=== PATIENT | female | born 1975 | race Hispanic/Latino ===

== ENCOUNTER 2019-05-23 12:38 | Inpatient (IN) | payer OTHER ==
[~2019-05-23] VITALS: Ht 154.9 cm; Wt 56.2 kg
[2019-05-23] MEDS ORDERED: SODIUM CHLORIDE 0.9% 1000ML 1,000 ML IV STA (12:55)
[2019-05-23] MEDS ORDERED: ONDANSETRON HCL INJ 2MG/ML 2ML 2 MG/ML VIAL IV STA (12:55)
[2019-05-23] MEDS ORDERED: PIPER-TAZ 3.375 GM 50 ML IV STA (12:55)
[2019-05-23] MEDS ORDERED: DIATRIZOATE MEGL/DIATRIZOA SOD 30 ML BTL PO ONE (13:30)
[2019-05-23 13:31] LABS: BASOPHILS % 0.1 % (0.0-1.0); EOSINOPHILS % 0.1 % (0.0-6.0); HEMATOCRIT 26.5 % (34.2-44.1); LYMPHOCYTES # (AUTO) 0.6 (1.0-3.2); LYMPHOCYTES % 4.4 % (18.0-39.1); MEAN CORPUSCULAR HEMOGLOBIN 22.8 pg (28-32); MEAN CORPUSCULAR HGB CONC 30.2 g/dL (31-35); MEAN CORPUSCULAR VOLUME 75.5 fL (81-99); MONOCYTES # (AUTO) 0.7 (0.2-0.8); MONOCYTES % 4.9 % (4.4-11.3); NEUTROPHILS # (AUTO) 12.3 (2.1-6.9); NEUTROPHILS % 89.9 % (38.7-80.0); PLATELET COUNT 358 x10e3/uL (140-360); RED BLOOD COUNT 3.51 x10e6/uL (3.6-5.1); RED CELL DISTRIBUTION WIDTH 17.2 % (11.7-14.4)
[2019-05-23] MEDS ORDERED: MORPHINE SULFATE INJ 4 MG/ML INJ 1ML IV NR (13:45)
[2019-05-23 13:50] LABS: BILIRUBIN,URINE NEGATIVE (NEGATIVE); CLARITY,URINE SL CLOUDY (CLEAR); COLOR,URINE YELLOW (YELLOW); KETONES,URINE NEGATIVE (NEGATIVE); LEUKOCYTE ESTERASE ,URINE TRACE (NEGATIVE); NITRITE,URINE NEGATIVE (NEGATIVE); PROTEIN,URINE DIPSTICK 2+ (NEGATIVE); URINE UROBILINOGEN 0.2 mg/dL (0.2 - 1)
[2019-05-23 13:51] LABS: PREGNANCY TEST, URINE NEGATIVE (NEGATIVE)
[2019-05-23 13:52] LABS: ALANINE AMINOTRANSFERASE 10 IU/L (0-55); ALBUMIN 3.6 g/dL (3.5-5.0); ALBUMIN/GLOBULIN RATIO 0.9 (0.8-2.0); ALKALINE PHOSPHATASE 69 IU/L (40-150); ANION GAP 14.3 mmol/L (8-16); BLOOD UREA NITROGEN 8 mg/dL (7-26); BUN/CREATININE RATIO 11 (6-25); CALCIUM 8.8 mg/dL (8.4-10.2); CARBON DIOXIDE 21 mmol/L (22-29); CHLORIDE 104 mmol/L (98-107); EST GLOMERULAR FILTRATION RATE > 60 ML/MIN (60-); GLUCOSE 118 mg/dL (74-118); LIPASE 24 U/L (8-78); POTASSIUM 3.3 mmol/L (3.5-5.1); SODIUM 136 mmol/L (136-145)
[2019-05-23 13:59] LABS: BACTERIA,URINE MANY /HPF; EPITHELIAL CELLS,URINE MODERATE /LPF; WBC,URINE (MAN) 21-50 /HPF (0-5)
--- NOTE | 2019-05-23 15:01 | Diagnostic Imaging Report ---
CT of the abdomen and pelvis History: Right lower quadrant pain Comparison: None available. Technique: Multidetector CT scanning of the abdomen and pelvis was performed from the level of the lung bases to the inferior pubic ramus, with intravenous administration of non-ionic contrast and with oral contrast. DOSE REDUCTION: The examination was performed according to departmental dose-optimization program which includes automated exposure control, adjustment of the mA and/or kV according to patient size and/or use of iterative reconstruction technique. Discussion: The lung bases are clear. No focal hepatic lesions are identified. The gallbladder is present nondistended. There are no radiopaque gallstones. There is no intrahepatic or extrahepatic biliary dilatation. Spleen is within normal limits of size. The bilateral adrenal glands are unremarkable. The pancreas is normal in attenuation. There is no pancreatic ductal dilatation or peripancreatic inflammatory stranding. The kidneys are normal in size and enhance symmetrically. There is no hydroureteronephrosis bilaterally. No renal calculi are identified. The stomach, small, and large bowel are nondistended. There is no evidence of obstruction. No bowel wall thickening is appreciated. The appendix is well-seen and is normal in caliber measuring 6 mm in maximum diameter. There is no free intraperitoneal air. An IUD is in place. The uterus and bilateral adnexa are within normal limits. There is a trace amount pelvic free fluid which is likely physiologic. The urinary bladder contains a punctate focus of gas which may be secondary to recent instrumentation. There is no bladder wall thickening. No acute osseous abnormalities are identified. IMPRESSION: 1. The appendix is normal in caliber. 2. Trace amount of pelvic free fluid, likely physiologic in nature. 3. Punctate focus of gas within the bladder. Possibly related to recent instrumentation. There is no evidence of bladder wall to suggest cystitis. 4. IUD in place. Signed by: Sudeep Hassan MD on 05/23/2019 2:58 PM
[2019-05-23] MEDS ORDERED: SODIUM CHLORIDE 0.9% 1000ML 1,000 ML IV ONE (15:15)
[2019-05-23] MEDS ORDERED: ONDANSETRON HCL INJ 2MG/ML 2ML 2 MG/ML VIAL IV PRN (15:15)
[2019-05-23] MEDS ORDERED: IOPAMIDOL 370 MG/ML 200 ML INFUS..BTL INJ ONE (15:22)
[2019-05-23] MEDS ORDERED: SODIUM CHLORIDE 0.9% 50ML 50 ML ONE (15:22)
--- OUTSIDE RECORDS SUMMARY | 2019-05-23 16:17 | XMS REPORT ---
Author Author [facility] Address Unknown Phone Unavailable Care Team Providers Care Advanced Clinical Specialist Name Role Phone Bridger HIGHTOWER Unavailable Unavailable Problems This patient has no known problems. Allergies, Adverse Reactions, Alerts This patient has no known allergies or adverse reactions. Medications This patient has no known medications. Results Test Description Test Time Test Comments Text Results Atomic Results Result Comments CT ABDOMEN/PELVIS W 2019-05-23 14:45:00 [facility] [address] [address] Patient Name: RAMA ANGEL MR #: [id number] : 1975 Age/Sex: 43/F Req #: [id number] Adm Physician: Ordered by: TESSA MARSHALL NP Report #: [id number] Location: ER Room/Bed: Procedure: [id number] CT/CT ABDOMEN/PELVIS W Exam Date: 05/23/19 Exam Time: 1420 REPORT STATUS: Signed CT of the abdomen and pelvis History: Right lower quadrant pain Comparison: None available. Technique: Multidetector CT scanning of the abdomen and pelvis was performed from the level of the lung bases to the inferior pubic ramus, with intravenous administration of non-ionic contrast and with oral contrast. DOSE REDUCTION: The examination was performed according to departmental dose-optimization program which includes automated exposure control, adjustment of the mA and/or kV according to patient size and/or use of iterative reconstruction technique. Discussion: The lung bases are clear. No focal hepatic lesions are identified. The gallbladder is present nondistended. There are no radiopaque gallstones. There is no intrahepatic or extrahepatic biliary dilatation. Spleen is within normal limits of size. The bilateral adrenal glands are unremarkable. The pancreas is normal in attenuation. There is no pancreatic ductal dilatation or peripancreatic inflammatory stranding. The kidneys are normal in size and enhance symmetrically. There is no hydroureteronephrosis bilaterally. No renal calculi are identified. The stomach, small, and large bowel are nondistended. There is no evidence of obstruction. No bowel wall thickening is appreciated. The appendix is well-seen and is normal in caliber measuring 6 mm in maximum diameter. There is no free intraperitoneal air. An IUD is in place. The uterus and bilateral adnexa are within normal limits. There is a trace amount pelvic free fluid which is likely physiologic. The urinary bladder contains a punctate focus of gas which may be secondary to recent instrumentation. There is no bladder wall thickening. No acute osseous abnormalities are identified. IMPRESSION: 1. The appendix is normal in caliber. 2. Trace amount of pelvic free fluid, likely physiologic in nature. 3. Punctate focus of gas within the bladder. Possibly related to recent instrumentation. There is no evidence of bladder wall to suggest cystitis. 4. [address]UD [address]. Signed by: Sudeep Dubon MD on 05/23/2019 2:58 PM Dictated By: SUDEEP DUBON MD [id number] Transcribed By: DARRYL on 05/23/19 [id number] COPY TO: TESSA MARSHALL NP
[2019-05-23] MEDS: SODIUM CHLORIDE 0.9% 1000ML 1,000 ML IV SCH (16:37)
[2019-05-23] MEDS ORDERED: POTASSIUM CHLORIDE 20 MEQ TAB CR PO NR (16:45)
--- NOTE | 2019-05-23 17:44 | NUR ---
Recvd patient from ER, AAOx3, Ambulates, not in any distress, new order recvd from Dr Ramírez for pain medicine, family at bed side, keep monitoring
[2019-05-23 17:52] VITALS: BP 111/55
[2019-05-23] MEDS ORDERED: PIPER-TAZ 3.375 GM 50 ML IV SCH (18:00)
[2019-05-23 18:06] VITALS: BP 111/55
[2019-05-23 18:24] VITALS: BP 111/55
[2019-05-23] MEDS: MORPHINE SULFATE INJ 4 MG/ML INJ 1ML IV PRN (18:44)
--- NOTE | 2019-05-23 19:10 | NUR ---
Bedside shift report with morning nurse. Pt alert and orient to name, sitting in bed HOB 90 degrees. Stated pain is improving, 6/10 abdominal pain. Call light within reach. Bed locked.
--- NOTE | 2019-05-23 19:47 | NUR ---
Pt with [address] Ramírez, ordered Tylenol 650mg every 6 hrs prn.
[2019-05-23 20:13] VITALS: BP 101/62
[2019-05-23] MEDS: ACETAMINOPHEN 325 MG TAB PO PRN (20:21)
[2019-05-23] MEDS: PIPER-TAZ 3.375 GM 50 ML IV SCH (22:00)
[2019-05-24] VITALS (8 sets, daily range): BP systolic 92–124; BP diastolic 55–79
[2019-05-24] MEDS: SODIUM CHLORIDE 0.9% 1000ML 1,000 ML IV SCH (02:51)
[2019-05-24] MEDS: MORPHINE SULFATE INJ 4 MG/ML INJ 1ML IV PRN ×2 (02:52→14:01)
[2019-05-24] MEDS: PIPER-TAZ 3.375 GM 50 ML IV SCH ×3 (06:00→22:25)
[2019-05-24 06:21] LABS: BASOPHILS % 0.3 % (0.0-1.0); EOSINOPHILS # (AUTO) 0.1 (0.0-0.4); EOSINOPHILS % 1.1 % (0.0-6.0); LYMPHOCYTES # (AUTO) 0.8 (1.0-3.2); LYMPHOCYTES % 8.5 % (18.0-39.1); MEAN CORPUSCULAR HGB CONC 30.2 g/dL (31-35); MEAN CORPUSCULAR VOLUME 76.3 fL (81-99); MONOCYTES # (AUTO) 0.7 (0.2-0.8); MONOCYTES % 6.6 % (4.4-11.3); NEUTROPHILS # (AUTO) 8.2 (2.1-6.9); PLATELET COUNT 240 x10e3/uL (140-360); RED BLOOD COUNT 2.78 x10e6/uL (3.6-5.1); RED CELL DISTRIBUTION WIDTH 17.2 % (11.7-14.4)
[2019-05-24 06:41] LABS: HEMATOCRIT 21.2 % (34.2-44.1); HEMOGLOBIN 6.4 g/dL (12.0-16.0)
--- NOTE | 2019-05-24 06:44 | NUR ---
Lab called to inform abnormal Hgb 6.3, Hct 21.2. Called Dr. Ramírez ordered x1 unit PRBCs.
[2019-05-24 06:54] LABS: ANION GAP 9.7 mmol/L (8-16); BLOOD UREA NITROGEN 5 mg/dL (7-26); BUN/CREATININE RATIO 8 (6-25); CALCIUM 7.8 mg/dL (8.4-10.2); CARBON DIOXIDE 22 mmol/L (22-29); CHLORIDE 108 mmol/L (98-107); CREATININE, SERUM 0.63 mg/dL (0.57-1.11); EST GLOMERULAR FILTRATION RATE > 60 ML/MIN (60-); GLUCOSE 89 mg/dL (74-118); POTASSIUM 3.7 mmol/L (3.5-5.1); SODIUM 136 mmol/L (136-145)
[2019-05-24] MEDS: ACETAMINOPHEN 325 MG TAB PO PRN (07:20)
--- NOTE | 2019-05-24 07:20 | NUR ---
Consent signed for blood and blood products.
[2019-05-24] MEDS ORDERED: SODIUM CHLORIDE 0.9% 250ML 250 ML IV ONE (07:25)
[2019-05-24 07:39] LABS: TOTAL IRON BINDING CAPACITY 356 ug/dL (261-478); TRANSFERRIN 254 mg/dL (180-382)
[2019-05-24 07:45] LABS: % IRON SATURATION 1 % (15-50); IRON < 5 ug/dL (50-170)
[2019-05-24] MEDS ORDERED: iron PO (08:43)
--- NOTE | 2019-05-24 11:43 | Diagnostic Imaging Report ---
Pelvic ultrasound Clinical History: Pelvic pain Discussion: Sonographic evaluation of the pelvis is performed transabdominally and transvaginally. The uterus is 10.1 x 6.3 x 7.3 cm and demonstrates heterogeneous echotexture with a 3.8 x 3.4 x 3.5 cm isoechoic solid lesion in the lower uterine segment distorting the endometrial stripe likely represents a submucosal fibroid. The endometrial echocomplex is homogeneous and measures 3mm. An intrauterine device is noted within the uterine cavity. The ovaries have normal size and appearance. The right ovary measures 3.0 x 1.8 x 2.1 cm. The left ovary measures 2.8 x 1.5 x 2.5 cm. Small amount of free fluid is seen in the cul-de-sac. Impression: 1. Uterine fibroid measuring up to 3.8 cm is noted. 2. IUD noted in the endometrial cavity. 3. Trace free fluid in the posterior cul-de-sac. Signed by: Dr. David Ward MD on 05/24/2019 11:40 AM
[2019-05-24] MEDS: IRON SUCROSE 100 MG in SODIUM CHLORIDE 0.9% 100 ML 100 ML IV SCH (15:39)
--- NOTE | 2019-05-24 19:20 | NUR ---
Report given to oncoming nurse of patient's status. NO s/s of acute distress noted. Side rails upx2, call light within reach, daughter at bedside
--- NOTE | 2019-05-24 19:30 | NUR ---
Patient received sitting up in bed. AAO x 4. No complaints of pain. No signs of respiratory distress. Safety measures in place. Patient instructed to call for assistance when needed. Call light within reach.
[2019-05-24] MEDS ORDERED: SODIUM CHLORIDE 0.9% 250ML 250 ML ONE (22:21)
[2019-05-25] VITALS (8 sets, daily range): BP systolic 111–132; BP diastolic 61–83
--- NOTE | 2019-05-25 04:32 | Consultation ---
DATE OF CONSULTATION: 05/24/2019 REASON FOR CONSULTATION: The patient is a 43-year-old, para 3, who was admitted for suspected pyelonephritis after having right lower quadrant pain, right flank pain, and fever. She was noted to have a white count of 13.7, hemoglobin 8.0, hematocrit 26.5, and platelets 358 with 90 segs and 4 lymphocytes. She was admitted to the hospital, given IV antibiotics, and has improved. She is noted to have a fibroid uterus and is very anemic with her hemoglobin and hematocrit 6.4 and 21.2. After hydration at the hospital, the patient states her pain has improved. She feels a lot better after the IV antibiotics. I presume that the reason for consultation is fibroid uterus and severe iron deficiency anemia with only 1% saturation on her anemia workup and serum iron of less than 5. The patient reports that she has had heavy periods her entire life. She has never been tested for colopathy, but does report that she bruises easily and has done so her entire life. She has more recently had heavy periods and she has an GUIDE DELEGATE, Dr. Carola Carbone, who has treated her bleeding with Mirena IUD. She inserted the IUD in March and the patient states that her bleeding has improved since the IUD was inserted, but she has been anemic and been treated with p.o. iron as an outpatient and her plan with her flag decorator was for endometrial ablation if the Mirena IUD did not work. On exam, her abdomen exhibits mild right lower quadrant tenderness with no rebound noted, which the patient states has greatly improved from previous. IMAGING STUDIES: She had an ultrasound of the pelvis, which showed uterus 10.1 cm x 6.3 cm x 7.3 cm with a 3.8 x 3.4 x 3.5 cm lesion in the lower uterine segment distorting the endometrium consistent with a submucosal fibroid. The IUD was also noted on the ultrasound. Both ovaries were within normal limits with a right ovary measuring 3.0 x 2.1 and the left ovary measuring 2.8 x 2.5. There is a small amount of fluid in the cul-de-sac, which was thought to be physiologic. Impression on ultrasound; 3.8 cm fibroid uterus, IUD in place, and trace amount of free fluid. CT scan showed normal appendix, trace free fluid, likely physiologic. There is gas in the bladder. No evidence of cystitis and the IUD was in place. On her second day in the hospital, her white count was 9.8, hemoglobin 6.4, hematocrit 21.2, platelets 240, 83 segs, and 9 lymphocytes. Sodium 136, potassium 3.7, chloride 108, bicarb 22, glucose 89, creatinine 0.63, and BUN 5. Urinalysis showed 2+ protein and showed 21-50 white blood cells, but moderate epithelials and many bacteria. Urine test was negative. IMPRESSION: Sepsis, responding to IV antibiotics, thought originally to be due to pyelonephritis with possibly some sort of gastroenteritis or other condition, unlikely to be related to her pelvic organs as inflammation not seen there on CT scan. Her hypokalemia is being treated with p.o. KCl. Her microcytic anemia has been worked up to show iron deficiency of very severe basis and she has apparent fibroid uterus with abnormal uterine bleeding being treated by the Mirena IUD. PLAN: She has already received transfusion of 1 unit of blood plus some IV iron. Since she has an GUIDE DELEGATE in place, the patient states that she is intending to go back to Dr. Carbone for followup and I explained her options of the Mirena IUD working and stopping her bleeding, possible need for endometrial ablation, possible hysteroscopic myomectomy, and as a last resort, hysterectomy. The patient understands these options. I might also suggest that she get a workup for coagulopathy, perhaps just running her PT and PTT to see if they are normal because of her history of always being heavy bleeder and of easy bruising. Thank you very much for the interesting consult. MD DUY Cherry/MODL /[id number]
[2019-05-25] MEDS: PIPER-TAZ 3.375 GM 50 ML IV SCH ×3 (06:03→22:00)
--- NOTE | 2019-05-25 06:54 | NUR ---
RECEIVED BEDSIDE SHIFT REPORT FROM OFF GOING NURSE. PATIENT IS RESTING IN BED. NO ACUTE DISTRESS NOTED. CALL LIGHT WITHIN REACH. BED IN THE LOWEST POSITION.
[2019-05-25 07:06] LABS: BASOPHILS % 0.2 % (0.0-1.0); EOSINOPHILS # (AUTO) 0.1 (0.0-0.4); EOSINOPHILS % 1.2 % (0.0-6.0); HEMATOCRIT 26.7 % (34.2-44.1); HEMOGLOBIN 8.1 g/dL (12.0-16.0); LYMPHOCYTES # (AUTO) 0.9 (1.0-3.2); LYMPHOCYTES % 10.5 % (18.0-39.1); MEAN CORPUSCULAR HEMOGLOBIN 23.6 pg (28-32); MEAN CORPUSCULAR HGB CONC 30.3 g/dL (31-35); MEAN CORPUSCULAR VOLUME 77.8 fL (81-99); MONOCYTES # (AUTO) 0.5 (0.2-0.8); MONOCYTES % 5.9 % (4.4-11.3); NEUTROPHILS # (AUTO) 6.7 (2.1-6.9); NEUTROPHILS % 81.7 % (38.7-80.0); PLATELET COUNT 268 x10e3/uL (140-360); RED BLOOD COUNT 3.43 x10e6/uL (3.6-5.1); RED CELL DISTRIBUTION WIDTH 17.6 % (11.7-14.4)
--- NOTE | 2019-05-25 07:50 | NUR ---
Walking rounds done. BSSR given to oncoming nurse.
--- NOTE | 2019-05-25 15:16 | NUR ---
PATIENT OFF THE UNIT FOR CT SCAN.
--- NOTE | 2019-05-25 15:38 | NUR ---
PATIENT BACK TO UNIT FROM CT.
--- NOTE | 2019-05-25 16:08 | Diagnostic Imaging Report ---
CT of the chest, PE protocol, with contrast. History: Chest pain. Comparison: CT abdomen/pelvis with contrast from 05/23/2019. Technique: Multidetector thin collimation CT scanning of the chest was performed from the level of the apices to the upper abdomen during the pulmonary arterial phase, after intravenous administration of contrast. Coronal and sagittal MIP reformations were obtained. RADIATION DOSE: Total DLP: 353.93 mGy*cm Dose modulation, iterative reconstruction, and/or weight based adjustment of the mA/kV was utilized to reduce the radiation dose to as low as reasonably achievable. FINDINGS: There is adequate opacification of the pulmonary arteries. The main pulmonary artery is normal in caliber measuring up to 2.2 cm in maximal diameter. The pulmonary arteries distribute normally without evidence of a filling defect to suggest pulmonary thromboembolism. The thyroid and remaining visualized structures within the base of the neck demonstrate no significant abnormalities. The thoracic aorta is normal course and caliber. The heart is not enlarged. There is no abnormal pericardial fluid present. There is no abnormal axillary, mediastinal, or hilar lymph node enlargement. The trachea and proximal airways are patent. There is a trace left and small right pleural effusion present with associated compressive atelectasis of the lower lobes. There is mild interlobular septal thickening present within the lower lobes. There is no evidence for consolidation, pneumothorax, mass, or suspicious nodule. There is partially visualized gallbladder wall thickening. There is no evidence for gallbladder distention, pericholecystic fluid, or biliary ductal dilatation appreciated. The remaining visualized upper abdominal contents are unremarkable. The osseous structures demonstrate no evidence for acute fracture or destructive process. The extrathoracic soft tissues are unremarkable. IMPRESSION: No evidence for pulmonary thromboembolus. Trace left and small right pleural effusion with associated bibasilar atelectasis. Interlobular septal thickening noted within the lower lobes which is nonspecific but can be seen in the setting of edema. Partially visualized gallbladder wall thickening. No no evidence for gallbladder distention, pericholecystic fluid, or biliary ductal dilatation identified. Signed by: Dr. Jori Guerrero MD on 05/25/2019 4:05 PM
--- NOTE | 2019-05-25 16:10 | NUR ---
IV LEAKING UPON ASSESSING. NEW IV GIVEN TO RIGHT MEDIAL AC X 1 ATTEMPT, PATIENT TOLERATED IT WELL.
[2019-05-25] MEDS: IRON SUCROSE 100 MG in SODIUM CHLORIDE 0.9% 100 ML 100 ML IV SCH (16:12)
--- NOTE | 2019-05-25 16:42 | Consultation ---
DATE OF CONSULTATION: 05/25/2019 CHIEF COMPLAINT: Abdominal pain. HISTORY OF PRESENT ILLNESS: The patient is a 43-year-old female with a 4-day history of pain in her lower abdomen in the right lower quadrant with nausea and no vomiting. The patient was initially constipated, but has had bowel movement after milk of magnesia and now has loose stools. She denies fever, chills, or diarrhea. Her appetite has been improving. PAST MEDICAL HISTORY: Negative for chronic illness. PAST SURGICAL HISTORY: She had recent IUD placement. ALLERGIES: NO DRUG ALLERGIES. SOCIAL HABITS: No smoking or alcohol abuse. REVIEW OF SYSTEMS: No chest pain, shortness of breath, or cough. PHYSICAL EXAMINATION: VITAL SIGNS: Stable, afebrile. GENERAL: She is awake, alert, in mild discomfort. HEENT: Sclerae nonicteric. NECK: Supple. LUNGS: Clear. HEART: Regular rate and rhythm. ABDOMEN: Soft with mild guarding in right lower quadrant without rebound. EXTREMITIES: No cyanosis or edema. LABORATORY DATA: White cell count is 13, hemoglobin of 8. Creatinine 0.6. CT of the abdomen showed trace amount of pelvic free fluid. Punctate focus of gas within the bladder. IUD in place. ASSESSMENT: Abdominal pain in the right lower quadrant with normal appendix on CT scan. Pelvic fluid in the CT scan suggestive of ruptured ovarian cyst. PLAN: Diet as tolerated. Thank you for consultation. Rigoberto Echevarria MD DNJimmie/MODL /[id number]
--- NOTE | 2019-05-25 17:43 | Diagnostic Imaging Report ---
EXAM: US ABDOMEN LIMITED DATE: 05/25/2019 12:00 AM INDICATION: Abdominal pain COMPARISON: CT chest from earlier 05/25/2019, CT abdomen/pelvis from 05/23/2019 FINDINGS: The liver is normal in size measuring 14.6 cm in length. Hepatic echogenicity is within normal limits. No focal hepatic abnormality is identified. The main portal vein is patent with antegrade flow and diameter of 0.9 cm, within normal limits. The gallbladder is contracted. There is a 4 mm echogenic focus identified within the gallbladder along the gallbladder wall. A trace amount of pericholecystic fluid is present. There is no biliary ductal dilatation. The common bile duct measures 2 mm. Sonographic Macario's sign is negative. The right kidney is normal in size measuring 9.5 cm in length with normal cortical thickness and echogenicity. There is no evidence for solid renal mass, hydronephrosis, or shadowing calculi. There is no ascites visualized within the right upper quadrant. IMPRESSION: Contracted gallbladder containing a 4 mm echogenic focus along the gallbladder wall which may represent an adherent stone versus small polyp. Nonspecific trace pericholecystic fluid present. No evidence for gallbladder distention, biliary ductal dilatation, or sonographic Macario's sign to suggest acute cholecystitis. Signed by: Dr. Jori Guerrero MD on 05/25/2019 5:41 PM
[2019-05-25] MEDS ORDERED: SODIUM CHLORIDE 0.9% 50ML 50 ML ONE (19:00)
[2019-05-25] MEDS ORDERED: IOPAMIDOL 370 MG/ML 200 ML INFUS..BTL INJ ONE (19:00)
--- NOTE | 2019-05-25 19:24 | NUR ---
BEDSIDE SHIFT REPORT GIVEN TO ONCOMING NURSE. PATIENT IS RESTING IN BED. NO ACUTE DISTRESS NOTED. CALL LIGHT WITHIN REACH. BED IN THE LOWEST POSITION.
--- NOTE | 2019-05-25 19:25 | NUR ---
Patient received sitting up in bed. AAO x 4. No acute distress noted. Call light within reach.
--- NOTE | 2019-05-25 22:15 | NUR ---
Patient's IV on right arm infiltrated. Old IV removed with tip intact. New IV inserted in right wrist 20G. Patient tolerated well.
[2019-05-26] VITALS: BP 125/72
[2019-05-26 04:00] VITALS: BP 114/67
[2019-05-26] MEDS: PIPER-TAZ 3.375 GM 50 ML IV SCH ×2 (06:06→13:42)
--- NOTE | 2019-05-26 06:45 | NUR ---
Walking rounds done. Patient resting comfortably. Shift report given to oncoming nurse.
--- NOTE | 2019-05-26 06:56 | NUR ---
RECEIVED BEDSIDE SHIFT REPORT FROM OFF GOING NURSE. PATIENT IS IN STABLE CONDITION. NO ACUTE DISTRESS NOTED. CALL LIGHT WITHIN REACH. BED IN THE LOWEST POSITION.
[2019-05-26 08:07] VITALS: BP 118/58
[2019-05-26 08:19] VITALS: BP 118/58
[2019-05-26 11:44] VITALS: BP 109/61
[2019-05-26] MEDS: IRON SUCROSE 100 MG in SODIUM CHLORIDE 0.9% 100 ML 100 ML IV SCH (15:19)
[2019-05-26 16:16] VITALS: BP 112/57
--- NOTE | 2019-05-26 16:47 | NUR ---
Iron infusion finished at this time.
[2019-05-26] MEDS ORDERED: AUGMENTIN 875-1 EACH PO (16:50)
--- NOTE | 2019-05-26 17:44 | Consultation ---
DATE OF CONSULTATION: 05/26/2019 Cardiac Consultation REASON FOR CONSULTATION: Chest pain. HISTORY OF PRESENT ILLNESS: A 43-year-old lady, very active without any cardiac symptoms. She came to this institution with severe abdominal pain. Diagnosed with ruptured ovarian cyst. Her hemoglobin was 6.4. She was given blood transfusion. The patient is supposed to go home, but she started complaining of lower retrosternal pain which is worse with deep inspiration. CT chest showed no pulmonary embolism. There is a little bit of fluid in both lungs. Cardiac consultation is obtained. I visited with the patient. Her abdominal pain is better and her chest pain is better. Very vague in characteristic of the chest pain. She cannot describe it. There is no angina. It is probably worse with a little bit deep breaths. There is no recent travel. The patient was taking hormone pills, but as I mentioned, her CT scan for PE is negative. REVIEW OF SYSTEMS: GENERAL: No fever, no chills. HEENT: No vision problem. No hearing problem. PULMONARY: No cough. No hemoptysis. CARDIAC: No anginal chest pain. No orthopnea. No paroxysmal nocturnal dyspnea. GI: Abdominal pain is getting better. : No hematuria. MUSCULOSKELETAL: No aches. No pain. GENERAL: No fever. No chills. SOCIAL HISTORY: She is . She is nonsmoker and non-alcohol drinker. 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 CURRENT MEDICATIONS: Include iron and antibiotic Zosyn. ALLERGIES: NONE. 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 No major illness. FAMILY HISTORY: Father at age 62 with alcoholic liver disease. Mother at age 52 with liver cirrhosis. Four healthy brothers. No sisters. Three healthy children, two son and one daughter. PHYSICAL EXAMINATION: VITAL SIGNS: Height of 5 feet 1 inch, weight of 124 pounds, blood pressure 120/60, heart rate of 60, respiratory rate of 18. HEENT: Pupils are equal and reactive. NECK: No elevation of jugular venous pulsation. No bruit. CHEST: Clear to auscultation and percussion. HEART: PMI 5th left intercostal space. Normal first and second heart sound. No pericardial rub. ABDOMEN: drying oven tender but no rebound. Bowel sounds sluggish, but present. EXTREMITIES: No cyanosis, no clubbing, no edema. No signs of deep venous thrombosis. NEUROLOGIC: Nonfocal. LABORATORY DATA: Sodium of 136, potassium 3.7, BUN of 5, creatinine 0.6, glucose of 89. White blood cell count of 8.1, hemoglobin after transfusion at 8.1. EKG showed no acute changes. No ST-T segment changes. Normal sinus rhythm. CT chest showing a little bit of fluid in both lungs. IMPRESSION AND PLAN: 1. Atypical chest pain. 2. Admission with abdominal pain, possible ruptured ovarian cyst. 3. Anemia. 4. Fibroid. Cardiac-rivera, this pain is not cardiac. Possible it is inflammation secondary to the abdominal event. Other differential diagnosis is definitely there. Pulmonary embolism is ruled out. RECOMMENDATION: My recommendation is just observation. We will do an echocardiogram to rule out pericardial effusion. Observation. If pain persisted or change in characteristic, then further steps to be done. MD NAS Umana/MODL /[id number]
--- NOTE | 2019-05-26 17:45 | NUR ---
RECEIVED DC ORDER FROM MD. PATIENT IS IN STABLE CONDITION. IV LINE TO LEFT WRIST DISCONTINUED WITH TIP INTACT, PRESSURE APPLIED TO SITE, NO BLEEDING NOTED. DISCHARGE TEACHING PROVIDED TO PATIENT, SHE VERBALIZED UNDERSTANDING. DISCHARGE FOLDER WITH PRESCRIPTIONS ON HAND. ALL PERSONAL ITEMS ON HAND. PATIENT ACCOMPANIED TO PRIVATE AUTO VIA WHEELCHAIR BY STAFF.
--- NOTE | 2019-05-27 04:01 | Discharge Summary ---
FINAL DIAGNOSIS: Sepsis present on admission, possibly due to rupture of ovarian cyst. SECONDARY DIAGNOSES: 1. Iron deficiency anemia. 2. Pleuritis. 3. Asymptomatic gallstones. CONSULTANTS: 1. Dr. Perez, STAFF NURSE. 2. Dr. Echevarria, Surgery. 3. Dr. George, Cardiology. PROCEDURE/STUDIES PERFORMED: 1. CT of the chest was negative for PE. 2. Abdominal ultrasound showed gallstones with cholecystitis. 3. Pelvic ultrasound, which was unremarkable. 4. Abdominal CT just shows gas and bladder. 5. Echocardiogram. HISTORY: Per H and P. HOSPITAL COURSE: With Zosyn, the patient fever went away and the right-sided abdominal pain got better. Etiology still completely not clear, initially thought to be urine given some gas in the bladder. However, urine culture was negative. We are able to visualize a normal appendix on the CAT scan. However, given the fact that there is some free pelvic fluid, even though pelvic ultrasound shows normal ovary, potentially this could be due to rupture of ovarian cyst. The patient also received iron infusion for her iron deficiency anemia. Subsequently, patient developed pleuritic chest pain. No evidence of PE. The patient was evaluated by Cardiology. Her chest pain is thought to be due to pleuritis. 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 I have informed the patient about this. The patient also was found to have asymptomatic gallstones. The patient was informed of this as well. Currently, the patient is doing much better now. We will discharge her home today with three more days of Augmentin to complete a course. The patient will take some NSAIDs if necessary for her chest pain. The patient was seen and examined today. It took 32 minutes total to discharge this patient. CONDITION ON DISCHARGE: Improved. DISCHARGE MEDICATIONS: Please see medication reconciliation form. Yiching MD JANET Cruz/FANTASMA /[id number]
== END 2019-05-26 17:45 | disposition home or self-care (01) | DRG 872 ==
LOC: ER 12:38 → ERHOLD 15:15 → MED/SURG3 17:45 → OBSVTOIN 05-25 13:47
PROVIDERS: ADMIT Internal Medicine; ATTEND Internal Medicine
PROC: 30233N1 Transfusion of Nonautologous Red Blood Cells into Peripheral Vein, Percutaneous Approach (ICD-10-PCS; principal; 2019-05-24)
DX: A41.9 Sepsis, unspecified organism (principal); D50.9 Iron deficiency anemia, unspecified; E87.6 Hypokalemia; D25.9 Leiomyoma of uterus, unspecified; Z97.5 Presence of (intrauterine) contraceptive device; N83.201 Unspecified ovarian cyst, right side; Z82.49 Family history of ischemic heart disease and other diseases of the circulatory system; Z80.9 Family history of malignant neoplasm, unspecified; K80.20 Calculus of gallbladder without cholecystitis without obstruction; R07.81 Pleurodynia
CPT/HCPCS: 36415; 71260; 74177; 76705; 76830; 76856; 80048; 80053; 81001; 81025; 83540; 83605; 83690; 83735; 84466; 85025; 86850; 86900; 86920; 87040; 87086; 93005; 93306; 96361; 99284; G0378; J1756; J2270; J2405; J2543; J7030; J7050; P9016; Q9967

== ENCOUNTER 2022-09-27 04:01 | Emergency (ER) | payer SELFPAY ==
[~2022-09-27] VITALS: Ht 154.9 cm; Wt 51.7 kg
[~2022-09-27 04:01] MED LIST: AUGMENTIN 875-1 EACH PO; iron PO
[2022-09-27 04:25] VITALS: O2SAT 98
[2022-09-27] MEDS ORDERED: VENTOLIN HFA18 GM INH (05:54)
[2022-09-27] MEDS ORDERED: PREDNISONE20 MG PO (05:54)
[2022-09-27] MEDS ORDERED: AZITHROMYCIN250 MG PO (05:54)
== END 2022-09-27 06:02 | disposition home or self-care (01) ==
LOC: ER 04:10
DX: R50.9 Fever, unspecified (principal); J06.9 Acute upper respiratory infection, unspecified; R51.9 Headache, unspecified; Z20.822 Contact with and (suspected) exposure to COVID-19
CPT/HCPCS: 87400; 99283; U0002